=== PATIENT | male | born 2000 | race Two or more races ===

== ENCOUNTER 2021-06-21 18:30 | Emergency (ER) | payer SELFPAY ==
[~2021-06-21] VITALS: Ht 177.8 cm; Wt 90.9 kg
[2021-06-21 19:14] VITALS: BP 145/62
--- NOTE | 2021-06-21 19:26 | PHYS DOC ---
Past Medical History Past Surgical History: No Surgical History General Adult EDM: Chief Complaint: FLU SYMPTOM HPI: HPI: Patient is a 9-year-old male who presents to the emergency department today with lower body aches, sore throat, and headache x3 days. Patient reports that his is sick with similar symptoms and has a pending Covid test. Patient denies any loss of taste or smell, cough, shortness of breath,nausea, vomiting, chest pain. Patient's vital signs are stable and he is in no acute distress. Review of Systems: Review of Systems: 14 body systems of the review of systems have been reviewed. See HPI for pertinent positive and negative responses, otherwise all other systems are negative, nonpertinent or noncontributory Heart Score: C/O Chest Pain: No Risk Factors: Risk Factors: DM, Current or recent (<one month) smoker, HTN, HLP, family history of CAD, obesity. Risk Scores: Score 0 - 3: 2.5% MACE over next 6 weeks - Discharge Home Score 4 - 6: 20.3% MACE over next 6 weeks - Admit for Clinical Observation Score 7 - 10: 72.7% MACE over next 6 weeks - Early Invasive Strategies Physical Exam: PE: Constitutional: Well developed, well nourished, no acute distress, non-toxic appearance. [] HENT: Normocephalic, atraumatic, bilateral external ears normal,uvula midline, no trismus, mild oropharyngeal erythema, patient maintaining secretions, no phonation changes oropharynx moist, no oral exudates, nose normal. [] Eyes: PERRL, EOMI, conjunctiva normal, no discharge. [] Neck: Normal range of motion, no tenderness, supple, no stridor. [] Cardiovascular:Heart rate regular rhythm, no murmur [] Lungs & Thorax: Bilateral breath sounds clear to auscultation [] Abdomen: Bowel sounds normal, soft, no tenderness, no masses, no pulsatile masses. [] Skin: Warm, dry, no erythema, no rash. [] Back: Normal range of motion Extremities: No tenderness, no cyanosis, no clubbing, ROM intact, no edema. [] Neurologic: Alert and oriented X 3, normal motor function, normal sensory function, no focal deficits noted. [] Psychologic: Affect normal, judgement normal, mood normal. [] Current Patient Data: Labs: Laboratory Tests Test 06/21/21 19:20 Influenza Type A Antigen Negative Influenza Type B Antigen Negative Vital Signs: Vital Signs Date Time Temp Pulse Resp B/P (MAP) Pulse Ox O2 Delivery O2 Flow Rate FiO2 06/21/21 19:14 98.1 88 18 145/62 (89) 98 Room Air 98.1 EKG: EKG: [] Radiology/Procedures: Radiology/Procedures: [] Course & Med Decision Making: Course & Med Decision Making Pertinent Labs and Imaging studies reviewed. (See chart for details) Patient presents to the emergency department for 3-day history of body aches, sore throat and headache. Patient had positive sick exposure with his has similar symptoms and has a pending Covid test. Patient be tested for influenza and that was negative. Patient was tested for COVID-19 you will be notified of those results when they become available in approximately 1 to 2 days, advised to self isolate until he receives those results. Educated on symptomatic treatment. Patient's vital signs are stable and he is in no acute distress. I discussed with patient all findings and diagnostic testing as well as the need to follow-up with PCP for further evaluation and treatment or return to the ER if any new or worsening symptoms. Strict return precautions were also discussed at length. Patient voiced understanding and agreement with the plan. Patient is hemodynamically stable at the time of disposition. Serafin Disclaimer: Serafin Disclaimer: This electronic medical record was generated, in whole or in part, using a voice recognition dictation system. Departure Departure Impression: Primary Impression: Person under investigation for COVID-19 Disposition: HOME / SELF CARE / HOMELESS Condition: GOOD Referrals: NO PCP (PCP) Patient Instructions: Myalgia, Adult Additional Instructions: You were seen in the emergency department today for body aches, sore throat and headache. Your rapid influenza test was negative. We tested you in the emerge ncy department today for COVID-19 you will be notified of those results when they become available in approximately 1 to 2 days. Please self isolate until you receive these results. For any pain or fevers you can take Tylenol and/or ibuprofen. For your sore throat please perform warm salt water gargles. Follow-up with your primary care provider tomorrow regarding your ER visit. Please return to the emergency department if you develop shortness of breath, chest pain, intractable nausea or vomiting or high fevers refractory to treatment. JEN [employer] Jun 21, 2021 19:26
[2021-06-21 19:43] LABS: INFLUENZA A PATIENT NEGATIVE (NEGATIVE); INFLUENZA B PATIENT NEGATIVE (NEGATIVE)
--- NOTE | 2021-06-22 14:36 | NUR ---
IP: Informed pt of negative covid test. Pt verbalized understanding.
== END 2021-06-21 20:15 | disposition home or self-care (01) ==
LOC: ER 18:30
DX: J02.9 Acute pharyngitis, unspecified (principal); Z20.822 Contact with and (suspected) exposure to COVID-19; R51.9 Headache, unspecified; M79.10 Myalgia, unspecified site
CPT/HCPCS: 87804; 99283; U0003; U0005